=== PATIENT | female | born 1975 | race Caucasian/White ===

== ENCOUNTER 2018-10-13 02:58 | Emergency (ER) | payer OTHER ==
[2018-10-13 03:46] LABS: Bilirubin Negative (Negative); Blood, Urine Negative (Negative); Clarity CLEAR (Clear); Glucose, Urine (Dipstick) Negative (Negative); Leukocyte Small (Negative); Nitrite Negative (Negative); Protein, Urine (Dipstick) Negative (Neg-Trace); Specific Gravity, Urine 1.011 (1.002-1.036); Urobilinogen 0.2 mg/dL (0.2-1.0); pH, Urine 5.5 (5.0-9.0)
[2018-10-13 03:49] LABS: Bacteria/HPF None Seen HPF (None Seen); Hyaline Casts/LPF 0-3 HYALINE CAST LPF (0-3 Hyaline); Pathc Cast-AUWi Flag 0.29 (0-2.49); RBC/HPF 0-3 HPF (0-3); Squamous Epithelial 0-3 HPF (0-3)
[2018-10-13 04:25] LABS: #Basophils 0.1 thou/uL (0.0-0.2); #Lymphocytes 1.1 thou/uL (1.20-3.40); #Monocytes 0.3 thou/uL (0.11-0.59); %Basophils 0.5 % (0.0-1.0); %Eosinophils 0.4 % (0.0-10.0); %Lymphocytes 9.5 % (21.0-51.0); %Monocytes 2.5 % (0.0-10.0); %Neutrophils 87.3 % (42.0-75.0); Hemoglobin 13.4 g/dL (12.0-16.0); Mean Corpuscular HGB CONC 34.6 g/dL (32.0-36.0); Mean Corpuscular Hemoglobin 31.8 pg (27.0-31.0); Mean Corpuscular Volume 91.8 fL (78.0-98.0); Mean Platelet Volume 7.4 fL (7.4-10.4); Platelet Count 295 thou/uL (130-400); RBC Distribution Width 12.4 % (11.5-14.5); Red Blood Cell (RBC) Count 4.22 mill/uL (4.20-5.40); White Blood Cell (WBC) Count 11.4 thou/uL (4.8-10.8)
[2018-10-13 04:47] LABS: ALT (SGPT) 38 U/L (8-55); AST (SGOT) 27 U/L (5-34); Albumin 4.3 g/dL (3.5-5.0); Alkaline Phosphatase 92 U/L (40-150); Anion Gap 14 mmol/L (10-20); BUN (Urea Nitrogen) 13 mg/dL (7.0-18.7); Bilirubin, Total Less than 0.2 mg/dL (0.2-1.2); Calc. Creatinine Clearance 0 mL/min (70-130); Calcium 9.4 mg/dL (7.8-10.44); Carbon Dioxide 23 mmol/L (22-29); Chloride 107 mmol/L (98-107); Estimated GFR-MDRD 55; Globulin 3.2 g/dL (2.4-3.5); Glucose 110 mg/dL (70-105); Lipase 22 U/L (8-78); Protein, Total 7.5 g/dL (6.0-8.3); Sodium 140 mmol/L (136-145)
[2018-10-13] MEDS ORDERED: Morphine 4 MG/ML VIAL ONE (04:53)
[2018-10-13] MEDS ORDERED: Diazepam 5 MG TAB ONE (04:53)
[2018-10-13 05:02] LABS: PTT 28.6 SEC (22.9-36.1)
[2018-10-13 05:03] LABS: Prothrombin Time 13.3 SEC (12.0-14.7)
[2018-10-13 05:12] LABS: D-Dimer Test Less than 0.27 *mcg/mL (0.27-0.43)
[2018-10-13] MEDS ORDERED: HYDROcodone/Acetaminophen 10/325 mg Tablet ONE (06:40)
--- NOTE | 2018-10-13 08:01 | CT ---
PRELIMINARY REPORT/[facility]/EMERGENTY AFTER-HOURS PROCEDURE CT Angiography Chest With Contrast EXAM DATE/TIME: 10/13/2018 4:53 AM CLINICAL HISTORY: 42 years old, female; Pain; Other: Upper back pain; Patient HX: F 42 presents to ed with upper back p ain that presents as muscle spasms under her shoulder blades. PT states that she was seen at [facility] 2 days ago then [facility] in [place] just prior to current visit. States that pain has been bad for the past 2 nights. Pmh of prior pe and hydrocephalus, has shunt in place. States she had a back injury in the . Received toradol, robaxin and solumedrol at [facility]. TECHNIQUE: Axial computed tomographic angiography images of the chest with intravenous contrast using CT angiogr aphy protocol. MIP reconstructed images were created and reviewed. COMPARISON: No relevant prior studies available. FINDINGS: Pulmonary arteries: Normal. No pulmonary emboli. Aorta: Normal aorta. Lungs: Mild right basilar subsegmental atelectasis. Lungs otherwise clear. Airways are clear. Pleural space: Trace right pleural effusion. Heart: Normal. No cardiomegaly. No pericardial effusion. Mediastinum: Esophagus is unremarkable. Gallbladder and bile ducts: Prior cholecystectomy. Lymph nodes: Unremarkable. No enlarged lymph nodes. Bones/joints: Unremarkable. No acute fracture. Soft tissues: Unremarkable. IMPRESSION: 1. Trace right pleural effusion. 2. Mild right basilar subsegmental atelectasis. Thank you for allowing us to participate in the care of your patient. Dictated and Authenticated by: Orlando Mane MD 10/13/2018 6:26 AM Central Time ([place] & [place]) FINAL REPORT CT ANGIOGRAM OF THE CHEST WITH CONTRAST: History: Pain Comparison: Radiograph same day. Technique: CT angiogram of the chest performed after the intravenous administration of contrast. 3D r endering was provided. FINDINGS: Findings and impression are concordant with the preliminary report. Code QA POS: [facility]
--- NOTE | 2018-10-13 09:25 | RAD ---
CHEST 1 VIEW: Date: 10/13/18 HISTORY: Chest pain and back pain. COMPARISON: None. FINDINGS: There is partial encrustation of the right shunt catheter that projects in the right hemithorax. The lungs are clear. No pneumothorax. There is some mild thickening of the right minor fissure. IMPRESSION: No acute intrathoracic abnormality. POS: [facility]
[2018-10-13] MEDS ORDERED: Iopamidol 370 76% 100 ML VIAL ONE (17:12)
== END 2018-10-13 07:03 | disposition home or self-care (01) ==
LOC: ERS 02:58
DX: J90 Pleural effusion, not elsewhere classified (principal); J18.9 Pneumonia, unspecified organism; M62.838 Other muscle spasm; F41.9 Anxiety disorder, unspecified; F32.9 Major depressive disorder, single episode, unspecified; F17.210 Nicotine dependence, cigarettes, uncomplicated; Z79.82 Long term (current) use of aspirin; Z79.899 Other long term (current) drug therapy
CPT/HCPCS: 36415; 71045; 71275; 80053; 81003; 81015; 83690; 84484; 85025; 85379; 85610; 85730; 96374; J2270

== ENCOUNTER 2019-01-22 13:05 | Outpatient (CLI) | payer OTHER ==
--- NOTE | 2019-01-22 13:22 | RAD ---
EXAM: Chest 2 views: HISTORY: Dyspnea COMPARISON: None. FINDINGS: There is a normal-sized cardiomediastinal silhouette. There is no evidence of consolidation, mass, or pleural effusion. The bones are unremarkable. A calcified catheter along the right chest wall likely represents a TILE SPRAYER shunt catheter. IMPRESSION: No evidence of acute cardiopulmonary disease
== END 2019-01-22 13:06 | disposition home or self-care (01) ==
LOC: RAD 13:05
PROVIDERS: ATTEND Internal Medicine Pulmonary Disease
DX: R06.00 Dyspnea, unspecified (principal)
CPT/HCPCS: 71046

== ENCOUNTER 2019-02-13 02:00 | Emergency (ER) | payer OTHER ==
[2019-02-13 02:34] LABS: #Basophils 0.1 thou/uL (0.0-0.2); #Eosinphils 0.4 thou/uL (0.0-0.7); #Lymphocytes 2.7 thou/uL (1.20-3.40); #Monocytes 0.7 thou/uL (0.11-0.59); #Neutrophils 4.7 thou/uL (1.40-6.50); %Basophils 1.4 % (0.0-1.0); %Eosinophils 4.9 % (0.0-10.0); %Lymphocytes 30.9 % (21.0-51.0); %Monocytes 8.6 % (0.0-10.0); %Neutrophils 54.3 % (42.0-75.0); Mean Corpuscular HGB CONC 33.9 g/dL (32.0-36.0); Mean Corpuscular Volume 91.6 fL (78.0-98.0); Mean Platelet Volume 7.1 fL (7.4-10.4); Platelet Count 310 thou/uL (130-400); RBC Distribution Width 12.6 % (11.5-14.5); Red Blood Cell (RBC) Count 4.18 mill/uL (4.20-5.40); White Blood Cell (WBC) Count 8.6 thou/uL (4.8-10.8)
[2019-02-13] MEDS ORDERED: Ketorolac Tromethamine 30 MG/ML VIAL ONE (02:34)
[2019-02-13] MEDS ORDERED: Fentanyl 100 MCG/2 ML VIAL ONE ×2 (02:34→04:15)
[2019-02-13 02:54] LABS: ALT (SGPT) 17 U/L (8-55); AST (SGOT) 17 U/L (5-34); Albumin 4.5 g/dL (3.5-5.0); Alkaline Phosphatase 73 U/L (40-150); Anion Gap 15 mmol/L (10-20); BUN (Urea Nitrogen) 12 mg/dL (7.0-18.7); Bilirubin, Total Less than 0.2 mg/dL (0.2-1.2); CK (CPK) 110 U/L (29-168); Calc. Creatinine Clearance 0 mL/min (70-130); Calcium 9.7 mg/dL (7.8-10.44); Carbon Dioxide 22 mmol/L (22-29); Chloride 109 mmol/L (98-107); Estimated GFR-MDRD 57; Globulin 2.5 g/dL (2.4-3.5); Glucose 91 mg/dL (70-105); Lipase 19 U/L (8-78); Potassium 4.1 mmol/L (3.5-5.1); Sodium 142 mmol/L (136-145)
[2019-02-13] MEDS ORDERED: Ondansetron PF 4 MG/2 ML Vial ONE (02:59)
[2019-02-13 04:45] LABS: Bilirubin Negative (Negative); Blood, Urine Negative (Negative); Clarity CLEAR (Clear); Glucose, Urine (Dipstick) Negative (Negative); Leukocyte Negative (Negative); Nitrite Negative (Negative); Protein, Urine (Dipstick) Negative (Neg-Trace); Specific Gravity, Urine 1.015 (1.002-1.036); Urobilinogen 0.2 mg/dL (0.2-1.0)
--- NOTE | 2019-02-13 07:26 | CT ---
PRELIMINARY REPORT CT Abdomen and Pelvis Without Contrast EXAM DATE/TIME: 02/13/2019 2:34 AM CLINICAL HISTORY: 43 years old, female; including x 3 days of lower back pain. TECHNIQUE: Imaging protocol: Axial computed tomography images of the abdomen and pelvis without contrast. Coronal reformatted images were created and reviewed. COMPARISON: No relevant prior studies available. FINDINGS: Tubes, catheters and devices: [facility] shunt catheter appears unremarkable. Lungs: Subpleural fibrosis, laterally right lung base. ABDOMEN: Liver: No solid mass. Gallbladder and bile ducts: Gallbladder has been removed. Pancreas: No acute pathology. No ductal dilation. Spleen: No solid mass. No splenomegaly. Adrenals: No mass. Kidneys and ureters: No solid mass. No hydronephrosis. Stomach and bowel: There is moderate colonic fecal retention. No obstruction. Appendix: No evidence of appendicitis. PELVIS: Bladder: Unremarkable as visualized. Reproductive: Unremarkable as visualized. Uterus has been removed. ABDOMEN and PELVIS: Intraperitoneal space: No free air. Bones/joints: No acute fracture. No dislocation. Soft tissues: Small fat containing umbilical hernia. Vasculature: No abdominal aortic aneurysm. Lymph nodes: No enlarged lymph nodes. IMPRESSION: Moderate colonic fecal retention. Small fat containing umbilical hernia. [facility] shunt catheter appears unremarkable. Thank you for allowing us to participate in the care of your patient. Dictated and Authenticated by: Concetta De La Vega MD 02/13/2019 3:45 AM Central Time ([place] & [place]) FINAL REPORT: CT ABDOMEN AND PELVIS NONCONTRAST Performed on an emergency basis at 0236 hours HISTORY: Flank pain. FINDINGS: I agree with the preliminary report by Dr. De La Vega from [facility]. No CT evidence of urinary tract obstruction or calcification. Lack of contrast limits evaluation for other abnormalities. Ventriculoperitoneal shunt is partially v isualized without evidence of complication. Code QA. Transcribed Date/Time: 02/13/2019 8:28 AM
--- NOTE | 2019-02-13 07:55 | RAD ---
Exam: Chest one view HISTORY:Chest pain Comparison: 10/13/2018 FINDINGS: Cardiac silhouette: Normal Pulmonary vessels: Normal Costophrenic angles: Clear LUNGS: No masses or consolidation. Chronic changes in the right lung base. Right-sided [employer] RN shunt catheter with associated calcifications is noted. Pneumothorax: None Osseous abnormalities: None IMPRESSION: No acute cardiopulmonary process.
== END 2019-02-13 05:31 | disposition home or self-care (01) ==
LOC: ERS 02:00
DX: M62.830 Muscle spasm of back (principal); F32.9 Major depressive disorder, single episode, unspecified; F41.9 Anxiety disorder, unspecified; F17.210 Nicotine dependence, cigarettes, uncomplicated; Z79.899 Other long term (current) drug therapy
CPT/HCPCS: 36415; 71045; 74176; 80053; 81003; 82550; 83690; 84484; 85025; 85379; 93005; 96374; 96375; 96376; J1885; J2405; J3010

== ENCOUNTER 2019-04-07 21:45 | Emergency (ER) | payer OTHER ==
--- NOTE | 2019-04-07 22:51 | RAD ---
EXAM: Chest 2 views: HISTORY: Fall with back pain and shortness of breath COMPARISON: None. FINDINGS: There is a normal-sized cardiomediastinal silhouette. A catheter projecting over the right chest wal l likely represents a MATERIAL LOADER shunt. There is no evidence of consolidation, mass, or pleural effusion. The bones are unremarkable. IMPRESSION: No evidence of acute cardiopulmonary disease
[2019-04-07] MEDS ORDERED: Ketorolac Tromethamine 30 MG/ML VIAL ONE (23:17)
--- NOTE | 2019-04-07 23:36 | CT ---
EXAM: CT of the thoracic spine without contrast HISTORY: Back pain after fall 2 weeks ago COMPARISON: None TECHNIQUE: Multiple contiguous axial images were obtained in a CT of the thoracic spine without contr ast. Sagittal and coronal reformats were performed. FINDINGS: The vertebral bodies and intervertebral discs demonstrate normal height and alignment witho ut fracture or subluxation. . No degenerative changes are present. The patient is status post cholecystectomy.. The other prevertebral and paraspinal soft tissues are unremarkable. IMPRESSION: No evidence of acute osseous abnormality of the thoracic spine.
== END 2019-04-07 23:59 | disposition home or self-care (01) ==
LOC: ERS 21:45
DX: S20.219A Contusion of unspecified front wall of thorax, initial encounter (principal); M62.830 Muscle spasm of back; F41.9 Anxiety disorder, unspecified; F32.9 Major depressive disorder, single episode, unspecified; F17.210 Nicotine dependence, cigarettes, uncomplicated; Z79.899 Other long term (current) drug therapy; W01.0XXA Fall on same level from slipping, tripping and stumbling without subsequent striking against object, initial encounter
CPT/HCPCS: 71046; 72128; 96372; J1885